=== PATIENT | male | born 1975 | race Caucasian/White ===

== ENCOUNTER 2017-02-23 12:24 | Emergency (ER) | payer SELFPAY ==
[2017-02-23 12:36] VITALS: BP 154/98; PULSE 74; RESP 16; TEMP 98.2; O2SAT 96
[2017-02-23] MEDS ORDERED: FLUORESCEIN SODIUM 1 MG STRIP OP ONE ×2 (12:36)
[2017-02-23] MEDS ORDERED: PROPARACAINE 0.5% 15 ML OPHT DROP OP ONE (12:36)
[2017-02-23] MEDS ORDERED: PROPARACAINE 0.5% 15 ML OPHT DROP ONE (12:37)
--- NOTE | 2017-02-23 13:12 | EDPHY ---
General Narrative: CHIEF COMPLAINT: Right eye pain for 2 months HISTORY OF PRESENT ILLNESS: Patient complains of right eye pain and blurred vision for 2 months. This was gradual onset constant duration. It has been worsening over the past 2 months. He says that he does have an brand sales manager Devin that he has used in the past, but he has not seen them because the wait was too long. He has some occasional blurred vision on the right side of his eye. He has no fever. The eye pain does radiate to the forehead and right synagogue, causing an occasional headache with this. Right now the headache is moderate to severe. No double vision. No trauma or injury. 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 No other associated complaints or modifying factors. REVIEW OF SYSTEMS: Ten systems reviewed and are negative unless otherwise noted in the HPI PCP: [facility] primary care physician SPECIALISTS: [facility] brand sales manager PAST MEDICAL HISTORY: Anxiety PAST SURGICAL HISTORY: Lasix to the right eye last year SOCIAL HISTORY: Nonsmoker. Occasional alcohol use. Works as a boilermaker welder FAMILY HISTORY: Noncontributory EXAMINATION General Appearance: Alert, no distress Head: normocephalic, atraumatic Eyes: Pupils equal and round, no conjunctival pallor or injection. EOMs intact. No nystagmus. No diplopia with upward outward gaze. Right-sided pterygium. No uptake with fluorescein exam. No hyphema or subconjunctival hemorrhage. Slit-lamp examination is unremarkable. ENT, Mouth: Mucous membranes moist Neck: Normal inspection, supple, non-tender Respiratory: No retractions or distress Cardiovascular: Regular rate. Good signs of perfusion Neurological: A&O, nonfocal, normal gait Skin: Warm and dry, no rash. No cellulitis. No petechiae purpura Extremities: Nontender, no pedal edema Psychiatric: Mood and affect normal DIFFERENTIAL DIAGNOSES: Including but not limited to pterygium conjunctivitis, corneal abrasion, conjunctival abrasion MDM: 1:00 p.m. Right eye pain for 2 months with the pterygium by examination. Slit-lamp examination is unremarkable other than noted pterygium. There is no uptake of fluorescein. No hyphema. No floaters in the anterior chamber. Patient is established with a [facility] brand sales manager and would like to follow up with him. I did provide the on-call brand sales manager for this emergency department for him to contact should he wish to do so. I do not feel this is emergent. We did discuss ED precautions that would warrant return to the emergency department or emergent ophthalmologic consultation. We discharged home with anti-inflammatories. I reviewed his [facility] prescription report, and he has oxycodone prescribed that is not yet due for refill. He will need to contact his [facility] physician for this. He is comfortable this plan and discharged home stable condition. SUPERVISION: Patient was independently examined, but I discussed the case with my secondary supervising physician Dr. Sanchez - History Smoking Status: Never smoked - Objective Vital Signs: Initial Vital Signs Temperature (C) 98.2 F 02/23/17 12:35 Heart Rate 74 02/23/17 12:35 Respiratory Rate 16 02/23/17 12:35 Blood Pressure 154/98 H 02/23/17 12:35 O2 Sat (%) 96 02/23/17 12:35 O2 Delivery Mode Room Air Allergies/Adverse Reactions: No Known Allergies Allergy (Unverified 02/23/17 12:35) Home Medications: Medication Instructions Recorded Kalyn 02/23/17 Naproxen 500 mg PO BID #20 tablet 02/23/17 Medications Given: Discontinued Medications Fluorescein Sodium (Klofn-N-Ohjdg) 1 mg OP EDNOW ONE Stop: 02/23/17 12:37 Last Admin: 02/23/17 12:40 Dose: 1 mg Proparacaine HCl (Alcaine 0.5%) 2 drops OP EDNOW ONE Stop: 02/23/17 12:37 Last Admin: 02/23/17 12:40 Dose: 1 btl Departure - Departure Disposition: Home, Routine, Self-Care Clinical Impression: Pain, eye, right Pterygium Qualifiers: Laterality: right Qualified Code(s): H11.001 - Unspecified pterygium of right eye Condition: Good Instructions: Pterygium (ED) Additional Instructions: 1. Naproxen as prescribed as needed. Do not combine with any other anti- inflammatories 2. Contact [facility] primary care physician for refill of your pain medication 3. Contact [facility] establish brand sales manager for further care 4. Contact the on-call brand sales manager as provided as needed 5. ED precautions as discussed Referrals: Javi Garcia MD [Medical Doctor] - As per Instructions [facility] ,. [Edm Groups for Call Sched] - As per Instructions Prescriptions: Naproxen 500 mg PO BID #20 tablet
== END 2017-02-23 13:20 | disposition home or self-care (01) ==
DX: H57.11 Ocular pain, right eye (principal); H11.001 Unspecified pterygium of right eye

== ENCOUNTER 2017-03-06 09:47 | Emergency (ER) | payer OTHER ==
[2017-03-06] MEDS ORDERED: MAGNESIUM CITRATE 300 ML BOTTLE PO ONE (10:38)
--- NOTE | 2017-03-06 10:38 | EDPHY ---
H & P Time Seen by Provider: 03/06/17 09:54 HPI/ROS: CHIEF COMPLAINT: Klonopin withdrawal HISTORY OF PRESENT ILLNESS: 42-year-old male with an IUD presents with multiple complaints, including withdrawal from Klonopin. He has a history of anxiety and has taken Klonopin for 7 years. Recently he decided to stop this medication. He tapered the medication over a couple of days and has not taking Klonopin for 4 days. He has been taking THC gummy bears instead, which alleviates his anxiety. He is quite concerned that his "mind will shut down" because of stopping Klonopin. He also complains of ongoing constipation since he has been on Percocet for low back pain. Associated with abdominal bloating and a burning sensation in his abdomen. No abdominal pain, vomiting or fever. No recent illness. REVIEW OF SYSTEMS: Constitutional: No fever, no chills Eyes: No visual changes ENT: No sore throat Respiratory: No cough, no shortness of breath Cardiac: No chest pain Genitourinary: no dysuria Musculoskeletal: No leg pain or swelling Skin: No rash Neurological: No headache Psychiatric: Anxiety Past Medical/Surgical History: Anxiety Social History: No recent alcohol PCP: Dr. Liu Smoking Status: Never smoked Physical Exam: General Appearance: Alert, pleasant, anxious and very talkative Eyes: Pupils equal and round, no conjunctival pallor ENT, Mouth: Mucous membranes moist Neck: Normal inspection Respiratory: Lungs are clear to auscultation Cardiovascular: Regular tachycardia Gastrointestinal: Abdomen is soft, slight epigastric tenderness, normal bowel sounds Neurological: A&O, nonfocal exam Skin: Warm and dry Extremities: Normal inspection Psychiatric: Anxious Constitutional: Initial Vital Signs Temperature (C) 37.1 C 03/06/17 09:49 Heart Rate 124 H 03/06/17 09:49 Respiratory Rate 18 03/06/17 09:49 Blood Pressure 153/99 H 03/06/17 09:49 O2 Sat (%) 96 03/06/17 09:49 O2 Delivery Mode Room Air Allergies/Adverse Reactions: No Known Allergies Allergy (Verified 03/06/17 09:48) Home Medications: Medication Instructions Recorded Klonopin 02/23/17 Naproxen 500 mg PO BID #20 tablet 02/23/17 Percocet 5/325 (*) 03/06/17 Medical Decision Making ED Course/Re-evaluation: This patient presents with multiple complaints, but primarily he is concerned about the safety of Klonopin withdrawal. Given that he tapered this medication and is 4 days out after stopping the Klonopin, he is reasonably safe, though certainly at some risk for a withdrawal seizure. The abdominal discomfort is most likely related to constipation, given that the burning sensation is generalized and his abdominal exam is benign. However he does have some epigastric tenderness, which suggests acute gastritis. He will take Zantac over the counter. Abdominal pain precautions given. I encouraged follow up with PCP. Differential Diagnosis: Differential diagnosis for abdominal pain includes though it is not limited to appendicitis, cholecystitis, diverticulitis, pyelonephritis, bowel perforation, small bowel obstruction. - Data Points Medications Given: Discontinued Medications Magnesium Citrate (Magnesium Citrate) 300 ml PO EDNOW ONE Stop: 03/06/17 10:39 Last Admin: 03/06/17 10:47 Dose: 300 mg Departure - Departure Disposition: Home, Routine, Self-Care Clinical Impression: Anxiety Constipation Qualifiers: Constipation type: drug induced constipation Qualified Code(s): K59.03 - Drug induced constipation Condition: Good Instructions: Constipation (ED), High Fiber Diet (ED), Abdominal Pain (ED), Anxiety (ED) Additional Instructions: You may continue taking THC gummy bears to control your anxiety. Please talk to your doctor about alternative ways to manage your anxiety. While you are on Percocet, drink plenty of fluids and eat a high-fiber diet. I have given you magnesium citrate for constipation. You may also take Dulcolax [id number]. For the epigastric burning sensation, take Zantac over the counter. Referrals: DOROTHEA,ROBERT [Other] - As per Instructions (Call to make an appointment with Dr. Liu.)
[2017-03-06 10:55] VITALS: BP 145/98; PULSE 92; RESP 19; TEMP 98.3; O2SAT 93
== END 2017-03-06 10:52 | disposition home or self-care (01) ==
DX: F41.9 Anxiety disorder, unspecified (principal); K59.03 Drug induced constipation; T42.6X5A Adverse effect of other antiepileptic and sedative-hypnotic drugs, initial encounter